=== PATIENT | male | born 1980 | race African-American/Black ===

== ENCOUNTER → 2016-09-06 | Outpatient (CLI) | payer BC ==
[~2016-09-06] MED LIST: AMLODIPINE BESY10 MG PO; ATORVASTATIN CA40 MG PO; AVELOX 400 MG400 MG PO; AZITHROMYCIN 2250 MG PO; BACTRIM DS TAB1 EACH PO; CALCITRIOL0.5 MCG PO; CARDURA4 MG PO; CARVEDILOL25 MG PO; CLONIDINE HCL0.3 M3 PO; HYDRALAZINE 10M10 MG PO; HYDRALAZINE 2525 MG PO; HYTRIN 1 MG CAP1 MG PO; IMDUR 30 MG TAB30 M1 PO; KLOR-CON 1010 MEQ PO; LASIX 40 MG TAB40 M1 PO; LOPRESSOR100 M1 PO; MINOXIDIL2.5 MG PO; PRILOSEC 20 MG20 MG PO; TORSEMIDE20 MG PO
--- NOTE | ~2016-09-06 | SLE ---
[facility] [place] [address] POLYSOMNOGRAPHY STUDY Name: ALEXANDRE WALLACE Room #: REG [facility]#: [id number] Admission: 09/06/16 Attend Phys: Ida Montalvo MD Discharge: Date of : 78 Report #: [id number] THIS REPORT FOR: //name// CC: Ida Montalvo FAM unknown Deon Patel HISTORY OF PRESENT ILLNESS: The patient with prior home study on August 02, showing apnea/hypopnea index of 70 events per recording hour with low oxygen saturation 76%, spending 18% of recording time less than 90%. COMMENTS: PVC noted. CPAP TITRATION: Titrated at 5 8, 9, 11, 13, 14, and 15 cm water pressure. At 15 cm water pressure, the patient was seen for 355 minutes of which only 11 minutes of REM sleep was seen. There were 3 hypopneas, apnea/hypopnea index 0.5 events per sleep hour, low sat was 65%. IMPRESSION: 1. Obstructive sleep apnea/hypopnea, G47.33, noted. 2. Throughout the night, periodic limb movement with arousal index was 0.6 events per sleep hour. 3. CPAP improves the patient's apnea/hypopnea index, snoring and desaturation; however, a significant amount of REM sleep was not seen. The patient did relate in morning questionnaire sleep was better. SUGGESTIONS: 1. In addition to specific therapy, the patient should be cautioned regarding driving or operating dangerous machinery unless fully alert. The patient will be cautioned regarding the use of respiratory depressants. 2. Oral appliance or appropriate surgery may be considered with polysomnographic followup. 3. An autotitrating CPAP between 10 and 18 cm water pressure is initially recommended. During our study, a Respironics Connie View large mask was used with heated humidity. 4. The patient did take a Tylenol 3 and a clonidine at 11:00 p.m. 5. Please do not hesitate to contact me if I may be of further assistance. By: [id number] Ida Montalvo MD /nt
== END ==
LOC: SLEEPLAB 17:12
DX: G47.33 Obstructive sleep apnea (adult) (pediatric) (principal)

== ENCOUNTER 2017-06-30 16:24 | Inpatient (IN) | payer BC ==
[~2017-06-30] VITALS: Ht 170.2 cm; Wt 108.2 kg
--- NOTE | ~2017-06-30 | EKG ---
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 : 1980 Requested By: Sameer Horton Order Number: [id number] MD: Armando Zarate Measurements Intervals [place] Rate: 102 P: 39 NC: 156 QRS: 22 QRSD: 91 T: 67 QT: 367 QTc: 479 Interpretive Statements Sinus tachycardia Borderline prolonged QT interval Compared to ECG 04/26/2010 01:50:23 Sinus rhythm no longer present Atrial abnormality no longer present Left ventricular hypertrophy no longer present Electronically Signed On 07-01-2017 12:22:54 [employer]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
--- NOTE | ~2017-06-30 | HC ---
[facility] [place] [address] CONSULTATION Name: ALEXANDRE WALLACE Room #: 353-P [facility]..#: [id number] Admission: 06/30/17 Attend Phys: Yolanda Caal Discharge: 07/01/17 Date of : 78 Report #: [id number] THIS REPORT FOR: //name// CC: FAM unknown Yolanda Caal DATE OF SERVICE: 06/30/2017 REASON FOR THE CONSULTATION: End-stage renal disease. REASON FOR THE PRESENTATION: Hyperkalemia. HISTORY OF PRESENT ILLNESS: A 36-year-old with past medical history of end-stage renal disease, cardiomyopathy, malignant hypertension. He is maintained on dialysis every Monday, Monday and Monday. He had major issues with his access in the last couple of months. He ended up with a new graft. He had it declotted on Monday. He dialyzed yesterday and labs revealed that his potassium was 8.7. He was supposed to dialyze today; however, unfortunately his access clotted again. Because of his hyperkalemia, he was advised to come to the Emergency Room. He denies any chest pain, no palpitation, no myalgias, no muscle weakness. No loss of consciousness, no syncope. He will be admitted for further evaluation and management including declotting of his AV graft and dialysis treatment tonight. PAST MEDICAL HISTORY: 1. Hypertension. 2. End-stage renal disease. 3. Cardiomyopathy. MEDICATIONS: 1. Amlodipine. 2. Atorvastatin. 3. Hydralazine. 4. Clonidine. 5. Torsemide. 6. Metoprolol. PAST SURGICAL HISTORY: Numerous procedures done on his right upper extremity fistula, new AV graft, left IJ tunneled catheter with removal. FAMILY HISTORY: Significant for hypertension. SOCIAL HISTORY: No drug or alcohol abuse. REVIEW OF SYSTEMS: GENERAL: No fever or chills. [facility] [address] [place] [address] CONSULTATION Name: ALEXANDRE WALLACE Room #: 353-P [facility] IN [facility]#: [id number] Admission: 06/30/17 Attend Phys: Yolanda Caal Discharge: 07/01/17 Date of : 78 Report #: [id number] CARDIOVASCULAR: No chest pain or palpitation. PULMONARY: No cough or hemoptysis. GASTROINTESTINAL: No nausea or vomiting. MUSCULOSKELETAL: No myalgias, no back pain. NEUROLOGICAL: No syncope, no headache. LABORATORY VALUES: Reviewed. The i-STAT potassium is elevated at 5.8. Creatinine is greater than 12.7. Hemoglobin is 9.7. Platelets 44,420. ASSESSMENT, IMPRESSION AND PLAN: 1. End-stage renal disease. 2. Clotted arteriovenous graft. 3. Hyperkalemia. 4. Hypertension. 5. Atrial fibrillation. 6. Discussed with Dr. Walker from the Interventional Radiology that the patient is eager to have thrombectomy of his arteriovenous graft done today. There is also a new tunneled dialysis catheter. This is to secure a dialysis access. Dialysis orders will be entered for tonight and will reevaluate his dialysis needs tomorrow. Continue with the current outpatient medications. <ELECTRONICALLY SIGNED> By: Kemar Pulido MD 07/05/17 1017 [id number] [id number] Kemar Pulido MD /nt
[2017-06-30 16:33] VITALS: BP 136/74
[2017-06-30 16:52] LABS: HEMOGLOBIN 9.7 gm/dL (14.0-18.0); MCH 32.9 pg (26.0-34.0); MCHC 32.5 g/dL (28.0-37.0); MCV 101.2 fL (80.0-100.0); RBC 2.96 mil/uL (4.50-6.00); RDW 15.5 % (10.5-14.5); WBC 11.4 thou/uL (4.0-11.0)
[2017-06-30 16:57] LABS: POC ANION GAP 13 mmol/L (7-16); POC BUN 61 mg/dL (7-18); POC CA IONIZED 3.9 mg/dL (4.5-5.3); POC CHLORIDE 101 mmol/L (98-107); POC CREATININE > 12.7 mg/dL (0.6-1.3); POC GLUCOSE 82 mg/dL (70-99); POC HEMOGLOBIN 11.2 g/dL (14.0-18.0); POC POTASSIUM 5.8 mmol/L (3.5-5.1); POC SODIUM 136 mmol/L (136-145); POC TCO2 28 mmol/L (21-32)
[2017-06-30 18:12] VITALS: BP 136/74
[2017-06-30 18:57] VITALS: BP 189/111
[2017-06-30 20:00] VITALS: BP 177/131
[2017-06-30 21:22] LABS: CALCIUM 8.3 mg/dL (8.5-10.1); CREATININE 10.8 mg/dL (0.7-1.3); POTASSIUM 4.2 mmol/L (3.5-5.1)
[2017-06-30 22:41] VITALS: BP 226/148
[2017-06-30 23:00] VITALS: BP 174/100
[2017-07-01] VITALS (7 sets, daily range): BP systolic 131–149; BP diastolic 59–103
[2017-07-01 04:50] LABS: CALCIUM 8.2 mg/dL (8.5-10.1); CREATININE 11.5 mg/dL (0.7-1.3); PHOSPHORUS 4.6 mg/dL (2.5-4.9)
[2017-07-01 04:53] LABS: POTASSIUM 5.2 mmol/L (3.5-5.1)
[2017-07-03 23:08] LABS: HEPATITIS B SURFACE AG Negative (Negative)
== END 2017-07-01 16:26 | disposition home or self-care (01) | DRG 314 ==
LOC: ER 16:24 → EROBS 17:18 → 3W 19:40
PROVIDERS: Emergency Medicine; Hospitalist
PROC: B5181ZA Fluoroscopy of Superior Vena Cava using Low Osmolar Contrast, Guidance (ICD-10-PCS; principal; 2017-06-30)
PROC: 5A1D70Z Performance of Urinary Filtration, Intermittent, Less than 6 Hours Per Day (ICD-10-PCS; principal; 2017-06-30)
PROC: 02HV33Z Insertion of Infusion Device into Superior Vena Cava, Percutaneous Approach (ICD-10-PCS; principal; 2017-06-30)
PROC: B548ZZA Ultrasonography of Superior Vena Cava, Guidance (ICD-10-PCS; principal; 2017-06-30)
PROC: 5A1D70Z Performance of Urinary Filtration, Intermittent, Less than 6 Hours Per Day (ICD-10-PCS; 2017-07-01)
DX: T82.590A Other mechanical complication of surgically created arteriovenous fistula, initial encounter (principal); N18.6 End stage renal disease; I42.9 Cardiomyopathy, unspecified; I13.2 Hypertensive heart and chronic kidney disease with heart failure and with stage 5 chronic kidney disease, or end stage renal disease; I48.91 Unspecified atrial fibrillation; I10 Essential (primary) hypertension; E87.5 Hyperkalemia; I50.9 Heart failure, unspecified; Z91.19 Patient's noncompliance with other medical treatment and regimen; Z99.2 Dependence on renal dialysis; Z79.899 Other long term (current) drug therapy; Z82.49 Family history of ischemic heart disease and other diseases of the circulatory system; Y83.8 Other surgical procedures as the cause of abnormal reaction of the patient, or of later complication, without mention of misadventure at the time of the procedure; Y92.89 Other specified places as the place of occurrence of the external cause
CPT/HCPCS: 10879; 32100